=== PATIENT | female | born 1970 | race African-American/Black ===

== ENCOUNTER 2021-07-09 10:30 | Emergency (ER) | payer BC ==
[2021-07-09] MEDS ORDERED: ACETAMINOPHEN 500 MG TABLET (FP) PO ONE (11:02)
[2021-07-09] MEDS ORDERED: LIDOCAINE 5% TOPICAL PATCH TP ONE (11:03)
[2021-07-09] MEDS ORDERED: IBUPROFEN 400 MG TABLET (FP) PO ONE ×2 (11:03→11:08)
[2021-07-09] MEDS ORDERED: ACETAMINOPHEN 325 MG TABLET (FP) ONE (11:08)
[2021-07-09] MEDS ORDERED: LIDOCAINE 5% TOPICAL PATCH ONE (11:09)
[2021-07-09 12:19] VITALS: BP 145/77; PULSE 83; TEMP 97.8; BMI 38.2
[2021-07-09] MEDS ORDERED: LIDOCAINE PATCH REMOVAL MC SCH (22:00)
== END 2021-07-09 12:20 | disposition home or self-care (01) ==
LOC: FER 10:30
DX: M54.50 Low back pain, unspecified (principal); R20.0 Anesthesia of skin
CPT/HCPCS: 72100-TC-FY; 99283-25